=== PATIENT | male | born 1990 | race Caucasian/White ===

== ENCOUNTER 2017-12-02 07:20 | Outpatient (CLI) ==
--- NOTE | 2017-12-02 08:56 | US ---
EXAM: Limited ultrasound abdomen right upper quadrant HISTORY: Abdominal pain COMPARISON: None TECHNIQUE: Limited ultrasound abdomen right upper quadrant was performed FINDINGS: Visualized portion pancreas appears normal. Portions of the pancreas obscured secondary b owel gas shadowing. Liver normal in size and echogenicity. Main portal vein patent with normal dire ction of flow. Gallbladder fluid-filled without gallbladder wall thickening, pericholecystic fluid, or shadowing gallstones. No biliary duct dilation with common bile duct measuring 0.3 cm. IMPRESSION: No abnormality identified in the liver, gallbladder, or biliary system.
== END 2017-12-02 07:21 | disposition home or self-care (01) ==
LOC: RAD 07:20
PROVIDERS: ATTEND Family Medicine
DX: R10.10 Upper abdominal pain, unspecified (principal)

== ENCOUNTER 2017-12-04 07:53 | Outpatient (CLI) ==
--- NOTE | 2017-12-04 11:17 | NM ---
EXAM: Hepatobiliary scan HISTORY: Abdominal pain. COMPARISON: None of this type. Ultrasound 12/02/2017. PROCEDURE: The patient was injected with 5.4 mCi of 99mTc mebrofenin intravenously. Images of the ab domen were obtained at 5 min intervals for 30 minutes. Additional images were obtained at 45 minutes and 1 hour. The patient was then injected with 2 mcg of CCK by slow infusion while images of the gal lbladder were obtained to assess gallbladder contraction. The patient reported very mild pain with Ki nevac. FINDINGS: Sequential images demonstrate normal uptake of tracer into the liver. Activity is seen in the intrahepatic biliary ducts at about 10 minutes. The activity appears in the gallbladder at about 15 minutes. Subsequent images demonstrate increasing activity in the gallbladder. Activity first a ppears in the small bowel at 15 minutes. The gallbladder ejection fraction is 50% . IMPRESSION: 1.Normal hepatobiliary scan. 2.The gallbladder ejection fraction is 50% (normal).
== END 2017-12-04 07:54 | disposition home or self-care (01) ==
LOC: RAD 07:53
PROVIDERS: ATTEND Family Medicine
DX: R10.10 Upper abdominal pain, unspecified (principal)